=== PATIENT | female | born 1950 | race Caucasian/White ===

== ENCOUNTER 2017-11-21 22:55 | Emergency (ER) | payer MEDICARE, BC ==
--- NOTE | 2017-11-22 00:33 | RADIOLOGY REPORT (SQ) ---
EXAM DESCRIPTION: CT HEAD WITHOUT CLINICAL HISTORY: head, facial trauma COMPARISON: None available TECHNIQUE: Axial CT of the head obtained from the skull apex to the skull base without contrast. FINDINGS: No acute intracranial hemorrhage identified. No mass, mass effect, shift of the midline, abnormal extra-axial fluid collection or CT evidence of acute ischemic change identified. The ventricular system is unremarkable. No acute abnormalities of the supratentorial white matter, basal ganglia, cerebellum, or brainstem. Coastal thickening of the left sphenoid sinus. Mastoid air cells are well aerated. Bilateral nasal bone fractures. Please see dedicated facial bone CT for further details. No skull fracture identified. Visualized orbits and globes are unremarkable. DLP: 937.36 mGy-cm IMPRESSION: 1. No acute intracranial abnormality identified. This exam was performed according to our departmental dose-optimization program, which includes automated exposure control, adjustment of the mA and/or kV according to patient size and/or use of iterative reconstruction technique.
--- NOTE | 2017-11-22 00:37 | RADIOLOGY REPORT (SQ) ---
EXAM DESCRIPTION: CT FACIAL AREA WITHOUT CLINICAL HISTORY: head, facial trauma COMPARISON: None available TECHNIQUE: Axial CT of the facial bone obtained without contrast. Coronal and sagittal reformatted images available. DLP: 488.22 mGy-cm FINDINGS: Orbits: Orbital floors and jenkins are intact. Intraorbital contents: The globes are intact. Extraocular muscles are symmetric. No intraconal fat stranding. Nasal bones: Bilateral nasal bone fractures with minimal rightward displacement. Minimally displaced fracture of the ethmoid portion of the anterior nasal septum. Maxilla: The maxillary hard palate is intact. Maxillary antral jenkins are intact. Sinuses: The coastal thickening of the left sphenoid sinus. Mastoid air cells are well aerated. Zygomatic processes: Intact Pterygoid plates: Intact Mandible: Intact. No mandibular condylar dislocation. Skull base/cervical spine: Visualized portions of the skull base and cervical spine are intact. Visualized mastoid air cells are well aerated. Subcutaneous soft tissues: Mild edema in the nasal soft tissues. Neck soft tissues: No definite abnormality involving the nasopharynx, oropharynx, or hypopharynx. Fossa of Rosenmuller are clear. Parotid glands and submandibular glands are unremarkable. No cervical lymphadenopathy. IMPRESSION: 1. Acute bilateral nasal bone fractures as well as acute anterior nasal septum fracture with minimal rightward displacement This exam was performed according to our departmental dose-optimization program, which includes automated exposure control, adjustment of the mA and/or kV according to patient size and/or use of iterative reconstruction technique.
--- NOTE | 2017-11-22 01:14 | ER Document Report ---
ED General - General Chief Complaint: Fall Stated Complaint: FACE INJURY Time Seen by Provider: 11/22/17 00:04 Notes: Patient is a 67-year-old female without chronic medical problems who presents after falling on the parking lot. Patient reports that she tripped over a parking barrier landing on the left side of her body striking her face and forehead. Patient reports that she did not see the barrier and actually fell over it. She states that she took the brunt of the impact with her face as this hip before her outstretched hands did. She notes a dull, constant, throbbing pain to the left side of her forehead and face. Nothing improves or worsens the pain. She denies any history of similar injuries in the past. She was able to ambulate after the fall, no vomiting, focal weakness, numbness, or altered mental status. She does not take any form of anticoagulation. Her tetanus is up-to-date. She is visiting from out of town and therefore is unable to see her primary care doctor regarding today's concerns. - Related Data Allergies/Adverse Reactions: No Known Allergies Allergy (Unverified 11/21/17 22:59) Past Medical History - General Information source: Patient, Relative - Social History Smoking Status: Never Smoker Chew tobacco use (# tins/day): No Frequency of alcohol use: None Drug Abuse: None Lives with: Family Family History: Reviewed & Not Pertinent Patient has suicidal ideation: No Patient has homicidal ideation: No Renal/ Medical History: Denies: Hx Peritoneal Dialysis Review of Systems - Review of Systems Notes: Constitutional: Negative for fever. Eyes: Negative for visual changes. ENT: Positive for facial injury Cardiovascular: Negative for chest injury. Respiratory: Negative for shortness of breath. Gastrointestinal: Negative for abdominal injury. Genitourinary: Negative for genital injury Musculoskeletal: Negative for back injury. Skin: Positive for laceration/abrasions. Neurological: Positive for head injury. Physical Exam - Vital signs Vitals: Temp Pulse Resp BP Pulse Ox 98.4 F 80 18 148/59 H 95 11/21/17 23:02 11/21/17 23:02 11/21/17 23:02 11/21/17 23:02 11/21/17 23:02 Interpretation: Hypertensive Notes: PHYSICAL EXAMINATION: GENERAL: Well-appearing, no acute distress. HEAD: Atraumatic, normocephalic. EYES: Pupils equal round and reactive to light, extraocular movements intact, sclera anicteric, conjunctiva are normal. ENT: nares patent, no oral pharyngeal trauma. No hemotympanum, no Odonnell's sign , no raccoon eyes. NECK: No midline cervical spine tenderness. Patient able to move their head to 45 bilaterally without any discomfort. LUNGS: Breath sounds clear to auscultation bilaterally and equal. No wheezes rales or rhonchi. HEART: Regular rate and rhythm without murmurs. CHEST WALL: No ecchymosis over the chest wall. ABDOMEN: Soft, nontender, normoactive bowel sounds. No guarding, no rebound. No seatbelt sign. EXTREMITIES: Normal range of motion, no pitting or edema. No long bone deformities. BACK: No midline spinal tenderness, step-offs, or deformities. NEUROLOGICAL: Face symmetric. Tongue protrudes midline. Extraocular motions intact. Pupils are 2 mm and equally reactive. Normal speech, normal gait. 5 out of 5 strength in both the distal and proximal upper and lower extremities bilaterally. Sensation is grossly intact throughout. Finger to nose testing normal. Pronator drift normal. PSYCH: Normal mood, normal affect. SKIN: Warm, Dry, normal turgor, no rashes or lesions noted. Course - Re-evaluation Re-evalutation: 11/22/17 01:11 Presentation of a well appearing elderly patient in no acute distress, vitals within normal limits after a mechanical fall. Patient denies a syncopal episode as the cause for today's fall. No focal neurologic deficits on exam, no evidence of basilar skull fracture on exam without evidence of hemotympanum, raccoon eyes, or periauricular hematoma. No papilledema. Patient is not on anticoagulation. GCS is 15. No loss of consciousness. No episodes of vomiting. However, based on patient's age a CT of the head has been obtained which is negative for any acute intracranial bleed. Patient is Nexus criteria negative for C-spine and her C-spine was clinically cleared. No indication for further imaging of the cervical spine. Patient has no focal deformities or limited range of motion in any joint space. Chest and abdominal exam are benign without any focal tenderness, shortness of breath, or bruising over the chest or abdominal wall. Patient has no flank tenderness. Patient did have facial abrasions most localized to the left side of her forehead, left cheek and over her central nose. CT the face does reveal bilateral nasal bone fractures and a right nasal septal fracture. There is no evidence of a septal hematoma on examination. There is no obvious findings on trauma exam today and therefore no further imaging or evaluation will be obtained at this time. At this time will discharge with return precautions and follow-up recommendations. Verbal discharge instructions given a the bedside and opportunity for questions given. Medication warnings reviewed. Patient is in agreement with this plan and has verbalized understanding of return precautions and the need for primary care follow-up in the next 24-72 hours. - Vital Signs Vital signs: Temp Pulse Resp BP Pulse Ox 98.4 F 80 18 148/59 H 95 11/21/17 23:02 11/21/17 23:02 11/21/17 23:02 11/21/17 23:02 11/21/17 23:02 - Diagnostic Test Radiology reviewed: Image reviewed, Reports reviewed Radiology results interpreted by me: 11/22/17 04:02 CT head: No acute intracranial bleed Discharge - Discharge Clinical Impression: Nasal bone fractures Qualifiers: Encounter type: initial encounter Fracture type: closed Qualified Code(s): S02.2XXA - Fracture of nasal bones, initial encounter for closed fracture Head trauma Qualifiers: Encounter type: initial encounter Qualified Code(s): S09.90XA - Unspecified injury of head, initial encounter Facial abrasion Qualifiers: Encounter type: initial encounter Qualified Code(s): S00.81XA - Abrasion of other part of head, initial encounter Condition: Good Disposition: HOME, SELF-CARE Additional Instructions: You have likely sustained a contusion (bruise) to your head. If you had a CT scan done, it did not show any evidence of serious injury or bleeding. Symptoms to expect from a concussion include nausea, mild to moderate headache, difficulty concentrating or sleeping, and mild lightheadedness. These symptoms should improve over the next few days to weeks. Return to the emergency department or follow-up with your primary care doctor if your symptoms are not improving over this time. Signs of a more serious head injury include vomiting , severe headache, excessive sleepiness or confusion, and weakness or numbness in your face, arms or legs. Return immediately to the Emergency Department if you experience any of these more concerning symptoms. Rest, avoid strenuous physical or mental activity, and avoid activities that could potentially result in another head injury until all your symptoms from this head injury are completely resolved for at least 2-3 weeks. If you participate in sports, get cleared by your doctor or link trainer teacher before returning to play. You may take ibuprofen or acetaminophen over the counter according to label instructions for mild headache or scalp soreness. Your CT scans do show that you have nasal bone fractures. These should heal well on their own over the course of the next 6 weeks. If after 6 weeks your having difficulty breathing through your nose or are unsatisfied with the appearance of your nose you can follow-up in the oral maxillofacial surgeon or an ENT doctor to consider surgical correction.
[2017-11-22 01:55] VITALS: BP 143/65
== END 2017-11-22 01:56 | disposition home or self-care (01) ==
LOC: ER 22:55
DX: S02.2XXA Fracture of nasal bones, initial encounter for closed fracture (principal); S09.90XA Unspecified injury of head, initial encounter; S00.81XA Abrasion of other part of head, initial encounter; W18.09XA Striking against other object with subsequent fall, initial encounter
CPT/HCPCS: 70450; 70486; 99284